=== PATIENT | male | born 1970 | race Caucasian/White ===

== ENCOUNTER 2017-01-20 08:37 | Emergency (ER) | payer OTHER ==
--- NOTE | 2017-01-20 09:06 | EDPHY ---
HPI/HX/ROS/PE/MDM Narrative: CHIEF COMPLAINT: Right upper quadrant abdominal pain HPI: The patient is an anticoagulated (Eliquis) 46 y/o male with a history of myocardial infarction (12 years ago) and c-diff complaining of right upper quadrant pain. He began having blood in his stool in early November with associated diarrhea up to 15 times daily. His primary care provider diagnosed him with c-diff and started him on antibiotic treatment. He finished treatment yesterday. He has continued left upper quadrant pain prompting his primary care provider to perform an abdominal ultrasound which indicates an enlarged spleen. Yesterday he began experiencing pain in the right upper quadrant prompting his primary care provider to direct him to the ED. The pain is constant and has no factors that improve or worsen it. He denies recent fever. He denies changes in stool since November. He denies any other associated factors. REVIEW OF SYSTEMS: Aside from elements discussed in the HPI, a comprehensive 10-point review of systems was reviewed and is negative. PMH: Myocardial infarction, c-diff SOCIAL HISTORY: bank accountant, lives in [facility] PHYSICAL EXAM: General:Patient is alert, in no acute distress. ENT:Eyes are normal to inspection. ENT inspection normal. Neck: Normal inspection. Full range of motion. Respiratory:No respiratory distress. Breath sounds normal bilaterally. Cardiovascular: Regular rate and rhythm. Strong peripheral pulses. Normal cap refill. Abdomen:The abdomen is nontender to palpation. There are no peritoneal signs. There are normal bowel sounds. Back: Normal to inspection. No tenderness to palpation. Skin: Normal color. No rash. Warm and dry. Extremities: Normal appearance. Full range of motion. Neuro: Oriented x3. Normal motor function. Normal sensory function. ED Course: Study: CT of the abdomen Indication: Abdominal pain Results: CT scan of the abdomen was obtained. The results of the study are: normal The study was read by the radiologist, Dr. Meza. I viewed the images myself on the PACS system. EKG was ordered and interpreted by myself. EKG was normal Please see [facility] system for official reading. MDM: This patient presents with bilateral upper abdominal pain in the setting of recent C difficile colitis infection. Workup in the emergency department is negative including negative troponin, negative LFTs, no signs of anemia and a CT scan of the abdomen and pelvis which shows no evidence of abnormality. The patient's exam is extremely reassuring. His vital signs are normal. I think he is appropriate for outpatient workup. I see no evidence of appendicitis, diverticulitis, cholecystitis, sepsis, acute coronary syndrome or aortic dissection. - Data Points Imaging Results: Imaging Impressions Abdomen CT 01/20/17 09:22 Impression: 1. Shotty mesenteric adenopathy without CT evidence of persistent colitis. 2. Normal spleen. 3. Incidental 4 cm liver hemangioma. 4. No obvious source for upper abdominal pain identified. Results called to Dr. Rodriguez at 10:17 am. General information for patients regarding this examination can be found at [email or web address]. If you have questions or comments about this report, please contact me at (hospital) or [phone] (cell). Laboratory Results: Laboratory Results 01/20/17 09:10 01/20/17 09:10 01/20/17 01/20/17 01/20/17 09:11 09:10 09:10 WBC RBC Hgb POC Hgb 13.6 gm/dL L gm/dL (13.7-17.5) Hct POC Hct 40 % % (40-51) MCV MCH MCHC RDW Plt Count MPV Neut % (Auto) Lymph % (Auto) [place] % (Auto) Eos % (Auto) Baso % (Auto) Nucleat RBC Rel Count Absolute Neuts (auto) Absolute Lymphs (auto) Absolute Monos (auto) Absolute Eos (auto) Absolute Basos (auto) Absolute Nucleated RBC Immature Gran % Immature Gran # POC Sodium 143 mEq/L mEq/L (134-144) Sodium 140 mEq/L mEq/L (134-144) POC Potassium 3.4 mEq/L mEq/L (3.3-5.0) Potassium 4.4 mEq/L mEq/L (3.5-5.2) POC Chloride 107 mEq/L mEq/L (97-110) Chloride 102 mEq/L mEq/L (97-110) Carbon Dioxide 24 mEq/l mEq/l (22-31) Anion Gap 14 mEq/L mEq/L (8-16) POC BUN 6 mg/dL L mg/dL (7-23) BUN 9 mg/dL mg/dL (7-23) Creatinine 0.7 mg/dL mg/dL (0.7-1.3) POC Creatinine 0.6 mg/dL L mg/dL (0.7-1.3) Estimated GFR > 60 Glucose 109 mg/dL H mg/dL (70-100) POC Glucose 91 mg/dL mg/dL (70-100) Calcium 9.5 mg/dL mg/dL (8.5-10.4) Total Bilirubin 0.6 mg/dL mg/dL (0.1-1.4) Conjugated Bilirubin 0.1 mg/dL mg/dL (0.0-0.5) Unconjugated Bilirubin 0.5 mg/dL mg/dL (0.0-1.1) AST 48 IU/L IU/L (17-59) ALT 71 IU/L IU/L (21-72) Alkaline Phosphatase 54 IU/L IU/L (38-126) Creatine Kinase 288 IU/L H IU/L (0-224) CK-MB (CK-2) Fraction 1.28 ng/mL ng/mL (0.00-3.19) CK-MB (CK-2) % 0.4 % % (0.0-4.0) Creatine Kinase Interp NEGATIVE (NEGATIVE) Troponin I < 0.012 ng/mL ng/mL (0.000-0.034) Total Protein 7.1 g/dL g/dL (6.3-8.2) Albumin 4.5 g/dL g/dL (3.5-5.0) Triglycerides 99 mg/dL mg/dL (40-150) Cholesterol 123 mg/dL L mg/dL (140-200) Cholesterol Risk Factr 0.4 (0.2-1.0) LDL Cholesterol, Calc 57 mg/dL L mg/dL (70-100) LDL Risk Factor 0.6 (0.2-1.0) VLDL Cholesterol 19 mg/dL mg/dL (8-25) Non-HDL Cholesterol 76 mg/dL L mg/dL (90-129) HDL Cholesterol 47 mg/dL mg/dL (40-65) LDL/HDL Ratio 1.21 RATIO RATIO (1.00-3.64) Cholesterol/HDL Ratio 2.62 RATIO RATIO (1.00-4.97) 01/20/17 09:10 WBC 5.19 10^3/uL 10^3/uL (3.80-9.50) RBC 5.27 10^6/uL 10^6/uL (4.40-6.38) Hgb 16.4 g/dL g/dL (13.7-17.5) POC Hgb Hct 46.5 % % (40.0-51.0) POC Hct MCV 88.2 fL fL (81.5-99.8) MCH 31.1 pg pg (27.9-34.1) MCHC 35.3 g/dL g/dL (32.4-36.7) RDW 12.6 % % (11.5-15.2) Plt Count 264 10^3/uL 10^3/uL (150-400) MPV 9.8 fL fL (8.7-11.7) Neut % (Auto) 62.0 % % (39.3-74.2) Lymph % (Auto) 21.6 % % (15.0-45.0) [place] % (Auto) 13.7 % H % (4.5-13.0) Eos % (Auto) 1.7 % % (0.6-7.6) Baso % (Auto) 0.8 % % (0.3-1.7) Nucleat RBC Rel Count 0.0 % % (0.0-0.2) Absolute Neuts (auto) 3.22 10^3/uL 10^3/uL (1.70-6.50) Absolute Lymphs (auto) 1.12 10^3/uL 10^3/uL (1.00-3.00) Absolute Monos (auto) 0.71 10^3/uL 10^3/uL (0.30-0.80) Absolute Eos (auto) 0.09 10^3/uL 10^3/uL (0.03-0.40) Absolute Basos (auto) 0.04 10^3/uL 10^3/uL (0.02-0.10) Absolute Nucleated RBC 0.00 10^3/uL 10^3/uL (0-0.01) Immature Gran % 0.2 % % (0.0-1.1) Immature Gran # 0.01 10^3/uL 10^3/uL (0.00-0.10) POC Sodium Sodium POC Potassium Potassium POC Chloride Chloride Carbon Dioxide Anion Gap POC BUN BUN Creatinine POC Creatinine Estimated GFR Glucose POC Glucose Calcium Total Bilirubin Conjugated Bilirubin Unconjugated Bilirubin AST ALT Alkaline Phosphatase Creatine Kinase CK-MB (CK-2) Fraction CK-MB (CK-2) % Creatine Kinase Interp Troponin I Total Protein Albumin Triglycerides Cholesterol Cholesterol Risk Factr LDL Cholesterol, Calc LDL Risk Factor VLDL Cholesterol Non-HDL Cholesterol HDL Cholesterol LDL/HDL Ratio Cholesterol/HDL Ratio Point of Care Test Results: 01/20/17 09:11 POC Sodium 143 POC Potassium 3.4 POC Chloride 107 POC BUN 6 L POC Creatinine 0.6 L POC Glucose 91 General Time Seen by Provider: 01/20/17 08:52 Initial Vital Signs: Initial Vital Signs Temperature (C) 36.6 C 01/20/17 08:45 Heart Rate 78 01/20/17 08:45 Respiratory Rate 17 01/20/17 08:45 Blood Pressure 122/92 H 01/20/17 08:45 O2 Sat (%) 96 01/20/17 08:45 O2 Delivery Mode Room Air Allergies/Adverse Reactions: No Known Allergies Allergy (Unverified 01/20/17 08:41) Home Medications: Medication Instructions Recorded Lisinopril [Zestril 20 mg (*)] 20 mg PO DAILY 09/17/12 Metoprolol Succinate Xr [Toprol Xl 25 mg PO DAILY 09/17/12 25 mg (*)] amLODIPine BESYLATE [Norvasc 5 mg 5 mg PO DAILY 09/17/12 (*)] Aspirin [Aspirin 325 mg (*)] 325 mg PO DAILY 01/29/16 Acetaminophen [Tylenol 325mg (*)] 650 mg PO Q6HRS PRN #0 tab 01/30/16 Pantoprazole Sodium 40 mg PO DAILY #30 tablet. 01/30/16 Departure - Departure Disposition: Home, Routine, Self-Care Clinical Impression: Abdominal pain Condition: Good Instructions: Abdominal Pain (ED) Additional Instructions: Follow-up with your primary doctor within one week. Return to the ED for worsening pain, blood in urine or stool, fever or other concerns. Referrals: JOHANA HIGH [Other] - As per Instructions Report Scribed for: Chris Rodriguez Report Scribed by: Elena Villatoro Date of Report: 01/20/17 Time of Report: 08:53 Physician Review and Approval Statement: Portions of this note were transcribed by an ED scribe. I personally performed the history, physical exam, and medical decision making; and confirm the accuracy of the information in the transcribed note.
--- NOTE | 2017-01-20 09:20 | CPEKG ---
Heart Rate: 70 RR Interval: 857 P-R Interval: 156 QRSD Interval: 106 QT Interval: 396 QTC Interval: 428 P [place]: 12 QRS [place]: 20 T Wave [place]: 35 EKG Severity - NORMAL ECG - EKG Impression: SINUS RHYTHM Electronically Signed By: Hugo Alcantar 21-Jan-2017 07:02:07
[2017-01-20 09:24] LABS: HEMATOCRIT 46.5 % (40.0-51.0); HEMOGLOBIN 16.4 g/dL (13.7-17.5); MEAN CELL HEMOGLOBIN 31.1 pg (27.9-34.1); MEAN CELL HEMOGLOBIN CONCENTR. 35.3 g/dL (32.4-36.7); MEAN CELL VOLUME 88.2 fL (81.5-99.8); RED BLOOD CELL COUNT 5.27 10^6/uL (4.40-6.38); RED CELL DISTRIBUTION WIDTH 12.6 % (11.5-15.2)
[2017-01-20 09:25] LABS: % IMMATURE GRANULYOCYTES 0.2 % (0.0-1.1); ABSOLUTE IMMATURE GRANULOCYTES 0.01 10^3/uL (0.00-0.10); ADD DIFF? NO; ADD MORPH? NO; ADD SCAN? NO; ATYPICAL LYMPHOCYTE FLAG 0 (0-99); FRAGMENT RBC FLAG 10 (0-99); LEFT SHIFT FLG 0 (0-99); LIPEMIA HEMOLYSIS FLAG 90 (0-99); MEAN PLATELET VOLUME 9.8 fL (8.7-11.7); PLATELET CLUMPS FLAG 20 (0-99); PLATELET COUNT 264 10^3/uL (150-400)
[2017-01-20] MEDS ORDERED: IOPAMIDOL (ISOVUE-300) 100 ML BTL ONE (09:31)
[2017-01-20 09:38] LABS: ALANINE AMINOTRANSFERASE 71 IU/L (21-72); ALBUMIN 4.5 g/dL (3.5-5.0); ALKALINE PHOSPHATASE 54 IU/L (38-126); ANION GAP 14 mEq/L (8-16); ASPARTATE AMINOTRANSFERASE 48 IU/L (17-59); BILIRUBIN,TOTAL 0.6 mg/dL (0.1-1.4); BILIRUBIN-CONJUGATED 0.1 mg/dL (0.0-0.5); BILIRUBIN-UNCONJUGATED 0.5 mg/dL (0.0-1.1); CALCIUM 9.5 mg/dL (8.5-10.4); CARBON DIOXIDE 24 mEq/l (22-31); CHLORIDE 102 mEq/L (97-110); CHOLESTEROL 123 mg/dL (140-200); CHOLESTEROL/HDL RATIO 2.62 RATIO (1.00-4.97); CREATININE 0.7 mg/dL (0.7-1.3); GLOMERULAR FILTRATION RATE > 60; GLUCOSE 109 mg/dL (70-100); HIGH DENSITY LIPOPROTEIN 47 mg/dL (40-65); LDL/HDL RATIO 1.21 RATIO (1.00-3.64); LOW DENSITY LIPOPROTEIN 57 mg/dL (70-100); NON-HIGH DENSITY LIPOPROTEIN 76 mg/dL (90-129); POTASSIUM 4.4 mEq/L (3.5-5.2); SODIUM 140 mEq/L (134-144); TOTAL PROTEIN 7.1 g/dL (6.3-8.2); TRIGLYCERIDE 99 mg/dL (40-150); VERY LOW DENSITY LIPOPROTEINS 19 mg/dL (8-25)
[2017-01-20 09:55] LABS: CK-MB INTERPRETATION NEGATIVE (NEGATIVE); CREATINE KINASE-MB FRACTION 1.28 ng/mL (0.00-3.19)
[2017-01-20 10:44] VITALS: BP 139/85; PULSE 67
[2017-01-20 10:45] VITALS: RESP 16; O2SAT 97
[2017-01-20 11:14] VITALS: TEMP 98.2
== END 2017-01-20 11:15 | disposition home or self-care (01) ==
DX: R10.9 Unspecified abdominal pain (principal); I25.2 Old myocardial infarction; Z79.82 Long term (current) use of aspirin
CPT/HCPCS: 82947-QW; Q9967

== ENCOUNTER 2018-03-12 14:25 | Emergency (ER) | payer OTHER ==
[2018-03-12 16:11] LABS: PLATELET COUNT 250 10^3/uL (150-400)
[2018-03-12] MEDS ORDERED: KETOROLAC 15 MG/1 ML SDV IVP ONE (16:14)
--- NOTE | 2018-03-12 16:14 | EDPHY ---
H & P Stated Complaint: LLQ abd pain Time Seen by Provider: 03/12/18 15:36 HPI/ROS: CHIEF COMPLAINT: Abdominal pain HISTORY OF PRESENT ILLNESS: 47-year-old male presents with abdominal pain. He awoke with left-sided abdominal pain this morning. The pain was cramping in associated with 1 episode of loose stool. Moderate cramping throughout the day , now with persistent left sided pain, 4/10. No fever, nausea or vomiting. No urinary symptoms. REVIEW OF SYSTEMS: complete 10 point ROS reviewed and is negative except for the noted elements in the HPI - Personal History Current Tetanus/Diphtheria Vaccine: Yes Current Tetanus Diphtheria and Acellular Pertussis (TDAP): Yes - Medical/Surgical History Hx Asthma: No Hx Chronic Respiratory Disease: No Hx Diabetes: No Hx Cardiac Disease: Yes Hx Renal Disease: No Hx Cirrhosis: No Hx Alcoholism: No Hx HIV/AIDS: No Hx Splenectomy or Spleen Trauma: No Other PMH: [place] 2004 2 STENTS, C- DIFF - Social History Smoking Status: Never smoked Alcohol Use: Sober Drug Use: None - Physical Exam Exam: General Appearance: Alert, pleasant Eyes: Pupils equal and round, no conjunctival pallor or injection ENT, Mouth: Mucous membranes moist Neck: Normal inspection Respiratory: Lungs are clear to auscultation Cardiovascular: Regular rate and rhythm Gastrointestinal: Abdomen is soft, left upper quadrant tenderness Neurological: A&O, nonfocal, normal gait Skin: Warm and dry, no rash Extremities: Nontender, no pedal edema Psychiatric: Mood and affect normal Constitutional: Initial Vital Signs Temperature (C) 36.7 C 03/12/18 14:29 Heart Rate 82 03/12/18 14:29 Respiratory Rate 16 03/12/18 14:29 Blood Pressure 130/85 H 03/12/18 14:29 O2 Sat (%) 94 03/12/18 14:29 O2 Delivery Mode Room Air Allergies/Adverse Reactions: No Known Allergies Allergy (Unverified 03/12/18 14:28) Home Medications: Medication Instructions Recorded Lisinopril [Zestril 20 mg (*)] 20 mg PO DAILY 09/17/12 Metoprolol Succinate Xr [Toprol Xl 25 mg PO DAILY 09/17/12 25 mg (*)] amLODIPine BESYLATE [Norvasc 5 mg 5 mg PO DAILY 09/17/12 (*)] Aspirin [Aspirin 325 mg (*)] 325 mg PO DAILY 01/29/16 Acetaminophen [Tylenol 325mg (*)] 650 mg PO Q6HRS PRN #0 tab 01/30/16 Pantoprazole Sodium 40 mg PO DAILY #30 tablet. 01/30/16 Medical Decision Making - Diagnostics Imaging Results: CT abd/pelvis read by the radiologist: GIANFRANCO Imaging: Discussed imaging studies w/ enforcement officer Radiologist ED Course/Re-evaluation: This pt presents with LUQ pain and loose stools. IV NS [address] abd/ pelvis ordered to r/o diverticulitis. CT: no evidence of diverticulitis. Results d/w pt, abd remains benign. Concern for possible early Cdif colitis, sent pt home with lab slip for GI pathogen panel and stool specimen container. Abd pain precautions given. Differential Diagnosis: includes though not limited to diverticulitis, kidney stone, appy, SBO, bowel perf - Data Points Laboratory Results: Laboratory Results 03/12/18 15:40 03/12/18 15:40 Medications Given: Discontinued Medications Ketorolac Tromethamine (Toradol) 15 mg IVP EDNOW ONE Stop: 03/12/18 16:15 Last Admin: 03/12/18 16:44 Dose: 15 mg Departure - Departure Disposition: Home, Routine, Self-Care Clinical Impression: Abdominal pain Qualifiers: Abdominal location: left upper quadrant Qualified Code(s): R10.12 - Left upper quadrant pain Condition: Good Instructions: Acute Abdominal Pain (ED) Additional Instructions: If you mave more diarrhea, return a sample to the [facility] lab. Return for worsening symptoms or any concerns. Referrals: Camilla Walker MD [Primary Care Provider] - As per Instructions
[2018-03-12] MEDS ORDERED: IOPAMIDOL (ISOVUE 370) 100 ML BTL IV ONE (16:18)
[2018-03-12 16:57] VITALS: BP 111/77
== END 2018-03-12 16:57 | disposition home or self-care (01) ==
DX: R10.12 Left upper quadrant pain (principal)
CPT/HCPCS: 96374; J1885; Q9967